=== PATIENT | female | born 1965 | race Hispanic/Latino ===

== ENCOUNTER → 2022-09-07 | Outpatient (CLI) | payer MEDICAID | END | disposition home or self-care (01) | LOC: RAH 10:10 | PROVIDERS: ATTEND Internal Medicine | DX: K22.2 Esophageal obstruction (principal); K21.9 Gastro-esophageal reflux disease without esophagitis; R13.10 Dysphagia, unspecified | CPT/HCPCS: 74240 ==

== ENCOUNTER → 2023-01-22 | Outpatient (CLI) | payer MEDICAID | END | disposition home or self-care (01) | LOC: RAH 12:35 | PROVIDERS: ATTEND Family Medicine | DX: M47.814 Spondylosis without myelopathy or radiculopathy, thoracic region (principal); M47.816 Spondylosis without myelopathy or radiculopathy, lumbar region; M54.50 Low back pain, unspecified | CPT/HCPCS: 72072; 72100 ==

== ENCOUNTER 2023-08-02 10:22 | Emergency (ER) | payer MEDICAID ==
[~2023-08-02] VITALS: Ht 154.9 cm; Wt 63.5 kg
[2023-08-02] MEDS: 0.9%NACL 1000ML 1,000 ML IV ONE (11:18)
[2023-08-02] MEDS: KETOROLAC 30MG VIAL (30MG/ML) IVP ONE (11:18)
[2023-08-02] MEDS: ONDANSETRON 4MG INJ IVP ONE (11:18)
[2023-08-02 11:29] LABS: BASOPHILS # (AUTO) 0.07 K/uL (0.00-0.20); BASOPHILS % (AUTO) 0.9 % (0.0-5.0); EOSINOPHILS # (AUTO) 0.13 K/uL (0.00-0.70); EOSINOPHILS % (AUTO) 1.6 % (0.0-8.0); HEMATOCRIT 40.7 % (36-48); IMMATURE GRANULOCYTE ABSOLUTE 0.02 K/uL (0-1); LYMPHOCYTES # (AUTO) 2.8 K/uL (1.0-4.8); LYMPHOCYTES % (AUTO) 33.8 % (21.0-51.0); MEAN CORPUSCULAR HEMOGLOBIN 26.7 pg (27.0-33.0); MEAN CORPUSCULAR HGB CONC 33.7 g/dL (32.0-36.0); MEAN CORPUSCULAR VOLUME 79.2 fL (79-99); MONOCYTES # (AUTO) 0.3 K/uL (0.1-1.0); NEUTROPHILS # (AUTO) 4.9 K/uL (1.8-7.7); NEUTROPHILS % (AUTO) 59.5 % (40.0-77.0); PLATELET COUNT (AUTO) 302 K/uL (130-400); RED BLOOD CELL COUNT(AUTO) 5.14 MIL/uL (4.00-5.50); RED CELL DISTRIBUTION WIDTH 14.3 % (11.0-15.5); WHITE BLOOD COUNT (AUTO) 8.2 K/uL (4.8-10.8)
[2023-08-02 11:40] LABS: ALBUMIN 3.8 g/dL (3.5-5.0); CREATININE 0.8 mg/dL (0.5-1.0); TOTAL PROTEIN, SERUM 7.9 g/dL (6.0-8.3)
[2023-08-02 11:50] LABS: ADD UA MICROSCOPIC YES; APPEARANCE,URINE CLEAR (CLEAR); BILIRUBIN,URINE NEGATIVE (NEGATIVE); COLOR,URINE LIGHT-YELLOW (YELLOW); GLUCOSE, URINE (UA) >=1000 mg/dL (NEGATIVE); KETONES,URINE NEGATIVE (NEGATIVE); LEUKOCYTE ESTERASE ,URINE NEGATIVE Leu/uL (NEGATIVE); NITRATE,URINE NEGATIVE (NEGATIVE); OCCULT BLOOD,URINE NEGATIVE (NEGATIVE); PH,URINE 5.5 (5.0-8.0); PROTEIN,URINE NEGATIVE (NEGATIVE); UROBILINOGEN,URINE 0.2 mg/dL (0.2-1.0)
[2023-08-02 12:01] LABS: BACTERIA,URINE RARE /HPF (None Seen); MUCUS,URINE RARE LPF (None Seen); SQUAMOUS EPITHELIAL CELL,UR FEW /HPF (0-2)
[2023-08-02 12:40] VITALS: BP 148/77; PULSE 72; RESP 16; O2SAT 100
[2023-08-02] MEDS ORDERED: IBUP-2070 PO (13:11)
[2023-08-02] MEDS ORDERED: MOM30 PO (13:11)
== END 2023-08-02 13:41 | disposition home or self-care (01) ==
LOC: EDH 10:22
DX: R51.9 Headache, unspecified (principal); R81 Glycosuria; E86.0 Dehydration; E11.9 Type 2 diabetes mellitus without complications; E78.00 Pure hypercholesterolemia, unspecified; I10 Essential (primary) hypertension; Z90.49 Acquired absence of other specified parts of digestive tract; Z90.710 Acquired absence of both cervix and uterus
CPT/HCPCS: 99285; 76770; 96374; 96361; 96375; 80053; 83690; 85025; 81001; 36415; 74018; 76856; J7030; J2405; J1885

== ENCOUNTER → 2023-08-02 | Outpatient (CLI) | payer MEDICAID ==
[~2023-08-02] MED LIST: IBUP-2070 PO; MOM30 PO
== END | disposition home or self-care (01) ==
LOC: RAH 09:46
PROVIDERS: ATTEND Internal Medicine
DX: R93.421 Abnormal radiologic findings on diagnostic imaging of right kidney (principal); R10.31 Right lower quadrant pain; Z90.710 Acquired absence of both cervix and uterus
CPT/HCPCS: 76770; 76856

== ENCOUNTER → 2024-02-24 | Outpatient (CLI) | payer MEDICAID ==
--- NOTE | 2024-02-24 16:05 | HMCIMG ---
FOOT COMP 3+VWS LT REASON: FOOT PAIN TECHNIQUE: 3 views were obtained. FINDINGS: There is a nondisplaced fracture proximal base of the fifth metatarsal. Bones appear otherwise unremarkable. Joint spaces are preserved and soft tissues appear normal. IMPRESSION: 1. Transverse fracture across the proximal base of the fifth metatarsal, not distracted.
== END | disposition home or self-care (01) ==
LOC: RAH 15:07
PROVIDERS: ATTEND Family Medicine
DX: S92.355A Nondisplaced fracture of fifth metatarsal bone, left foot, initial encounter for closed fracture (principal); M79.672 Pain in left foot; X58.XXXA Exposure to other specified factors, initial encounter; Y93.89 Activity, other specified; Y92.89 Other specified places as the place of occurrence of the external cause; Y99.8 Other external cause status
CPT/HCPCS: 73630

== ENCOUNTER 2024-05-06 08:14 | Day surgery (SDC) | payer MEDICAID ==
[~2024-05-06] VITALS: Ht 157.5 cm; Wt 65.8 kg
[2024-05-06] VITALS (12 sets, daily range): BP systolic 108–139; BP diastolic 68–81; PULSE 78–96; RESP 15–18; TEMP 97.1–98
[~2024-05-06 08:14] MED LIST changes: +ALEN70TA80 PO; +ASPI-1005 PO; +ATOR40TA69 PO; +BUSP10TA3 PO; +CHLO25TA3 PO; +FLUO40CA49 PO; +GABA-1405 PO; +GOLY4L PO; +HYDR-3422 PO; +HYDR25TA67 PO; -IBUP-2070 PO; +INSU100I24 SQ; +IRBE75TA16 PO; +LEVO25CA4 PO; +LINA290C PO; +LORA0.5T83 PO; +METF-446 PO; +METO-409 PO; -MOM30 PO; +NAPR-1023 PO; +NORT10CA2 PO; +PANT40TA54 PO; +SEMA2PEN SQ; +[UNRECOGNIZED DRUG - OTHER] PO
[2024-05-06] MEDS: 0.9%NACL 1000ML 1,000 ML IV ONE (09:17)
[2024-05-06] MEDS ORDERED: proPOFol 10 MG/ML 20ML VIAL IV ONE (09:30)
--- NOTE | 2024-05-06 11:14 | NUR ---
FULL AND COMPLETE DISCHARGE INSTRUCTIONS GIVEN TO PATIENT AND FAMILY BOTH VERBALLY AND IN WRITING. VOICED UNDERSTANDING TO GI PROCEDURE FOLLOW UP EXPECTIONS AND PRECAUTIONS. PATIENT DENIES C/O PAIN OR NEED. PIV REMOVED WITH CATHETER TIP INTACT. Patient attempted to drive own car home. She was returned to Day Patient room. Now pending transportation with alternate family member. Daughter at side.
--- NOTE | 2024-05-06 13:26 | NUR ---
Transportation arrived at this time to picker tender Patient and Daughter. Witnessed getting into a silver SUV.
== END 2024-05-06 11:10 | disposition home or self-care (01) ==
LOC: ENDO 08:14 → DAH 08:14 → ENDO 11:10
PROVIDERS: ATTEND Internal Medicine Gastroenterology
DX: R10.31 Right lower quadrant pain (principal); K59.04 Chronic idiopathic constipation; K63.3 Ulcer of intestine; E11.43 Type 2 diabetes mellitus with diabetic autonomic (poly)neuropathy; K31.84 Gastroparesis; K21.9 Gastro-esophageal reflux disease without esophagitis; K57.90 Diverticulosis of intestine, part unspecified, without perforation or abscess without bleeding; K22.2 Esophageal obstruction; K76.0 Fatty (change of) liver, not elsewhere classified; K29.70 Gastritis, unspecified, without bleeding; K64.1 Second degree hemorrhoids; K43.9 Ventral hernia without obstruction or gangrene; R10.13 Epigastric pain; R93.421 Abnormal radiologic findings on diagnostic imaging of right kidney; E78.5 Hyperlipidemia, unspecified; I25.10 Atherosclerotic heart disease of native coronary artery without angina pectoris; I10 Essential (primary) hypertension; F41.9 Anxiety disorder, unspecified; F32.A Depression, unspecified; E03.9 Hypothyroidism, unspecified; E66.9 Obesity, unspecified; M19.90 Unspecified osteoarthritis, unspecified site; Z90.49 Acquired absence of other specified parts of digestive tract; Z95.5 Presence of coronary angioplasty implant and graft; Z98.890 Other specified postprocedural states; Z90.710 Acquired absence of both cervix and uterus; Z79.899 Other long term (current) drug therapy; Z68.27 Body mass index [BMI] 27.0-27.9, adult; Z79.84 Long term (current) use of oral hypoglycemic drugs; Z79.82 Long term (current) use of aspirin
CPT/HCPCS: 82948; 45378; J7030 ×2; J2704; A4620; A4215 ×2; A4223; A4222; A4221; A4663; A4606; J3490

== ENCOUNTER 2024-07-29 12:17 | Emergency (ER) | payer MEDICAID ==
[~2024-07-29] VITALS: Ht 154.9 cm; Wt 70.8 kg
[~2024-07-29 12:17] MED LIST changes: -GOLY4L PO; -LEVO25CA4 PO; +LEVO25CA5 PO; -NAPR-1023 PO; +NAPR-1194 PO
[2024-07-29 13:14] LABS: BASOPHILS # (AUTO) 0.05 K/uL (0.00-0.20); BASOPHILS % (AUTO) 0.6 % (0.0-5.0); EOSINOPHILS # (AUTO) 0.12 K/uL (0.00-0.70); EOSINOPHILS % (AUTO) 1.4 % (0.0-8.0); HEMATOCRIT 33.6 % (36-48); IMMATURE GRANULOCYTE ABSOLUTE 0.03 K/uL (0-1); LYMPHOCYTES # (AUTO) 2.7 K/uL (1.0-4.8); MEAN CORPUSCULAR HEMOGLOBIN 27.3 pg (27.0-33.0); MEAN CORPUSCULAR HGB CONC 33.6 g/dL (32.0-36.0); MEAN CORPUSCULAR VOLUME 81.2 fL (79-99); MONOCYTES # (AUTO) 0.6 K/uL (0.1-1.0); MONOCYTES % (AUTO) 7.5 % (3.0-13.0); NEUTROPHILS # (AUTO) 4.9 K/uL (1.8-7.7); NEUTROPHILS % (AUTO) 58.1 % (40.0-77.0); PLATELET COUNT (AUTO) 259 K/uL (130-400); RED BLOOD CELL COUNT(AUTO) 4.14 MIL/uL (4.00-5.50); RED CELL DISTRIBUTION WIDTH 14.3 % (11.0-15.5); WHITE BLOOD COUNT (AUTO) 8.4 K/uL (4.8-10.8)
[2024-07-29 13:30] LABS: ALBUMIN 3.5 g/dL (3.5-5.0); BILIRUBIN,DIRECT 0.2 mg/dL (0.0-0.3); BILIRUBIN,TOTAL 0.7 mg/dL (0.2-1.0); POTASSIUM 3.6 mmol/L (3.5-5.1); TOTAL PROTEIN, SERUM 7.8 g/dL (6.0-8.3)
--- NOTE | 2024-07-29 14:29 | ERN ---
General Chief Complaint: Flu Symptoms Stated Complaint: VOMITTING,WEAKNESS Time Seen by MD: 12:21 History of Present Illness Initial Comments 58-year-old female who presents for one week of body aches, subjective fever, cough, congestion, sore throat. No rhinorrhea. P.o. tolerant. Nausea without vomiting. No diarrhea. No abdominal pain. No chest pain. Allergies: Coded Allergies: No Known Drug Allergies (Unverified Allergy, Unknown, 08/02/23) Home Meds Reported Medications Buspirone HCl (Buspirone HCl) 10 Mg Tablet, 10 MG PO TID, TAB 05/01/24 Fluoxetine HCl (Fluoxetine HCl) 40 Mg Capsule, 1 CAP PO DAILY for 30 Days, #30 CAP 0 Refills 05/01/24 Lorazepam (Ativan) 0.5 Mg Tablet, 0.5 MG PO HS, TAB 05/01/24 Irbesartan (Irbesartan) 75 Mg Tablet, 1 TAB PO DAILY for 30 Days, #30 TAB 0 Refills 05/01/24 Levothyroxine Sodium (Levothyroxine) 25 Mcg Capsule, 1 CAP PO DAILY for 30 Days, #30 CAP 0 Refills 05/01/24 Linaclotide (Linzess) 290 Mcg Capsule, 1 CAP PO DAILY for 30 Days, #30 CAP 0 Refills 05/01/24 Pantoprazole Sodium (Pantoprazole Sodium) 40 Mg Tablet.dr, 1 TAB PO DAILY for 30 Days, #30 TAB 0 Refills 05/01/24 Atorvastatin Calcium (LIPITOR) 40 Mg Tablet, 1 TAB PO DAILY for 30 Days, #30 TAB 0 Refills 05/01/24 Aspirin (ASPIRIN 81MG CHEW TAB) 81 Mg Tab.chew, 1 TAB PO DAILY for 30 Days, #30 TAB 0 Refills 05/01/24 Fe/FA/Dha/Epa/Fad/Nadh/Be/Mv47 (Enlyte Softgel) 1.5-8.73MG Cap.ir.dr, 1 CAP PO DAILY for 30 Days, #30 CAP 0 Refills 05/01/24 Gabapentin (Gabapentin) 600 Mg Tablet, 600 MG PO HS, TAB 05/01/24 Metoprolol Succinate (Metoprolol Succinate) 100 Mg Tab.er.24h, 1 TAB PO DAILY for 30 Days, #30 TAB 0 Refills 05/01/24 Hydralazine HCl (Hydralazine HCl) 25 Mg Tablet, 1 TAB PO BID for 30 Days, #60 TAB 0 Refills 05/01/24 Nortriptyline HCl (Nortriptyline HCl) 10 Mg Capsule, 10 MG PO AM, CAP 05/01/24 Hydroxyzine HCl (Hydroxyzine HCl) 50 Mg Tablet, 1 TAB PO HS for anxiety for 30 Days, #30 TAB 0 Refills 05/01/24 Naproxen (Naproxen) 500 Mg Tablet, 1 TAB PO BID for pain for 30 Days, #60 TAB 0 Refills 05/01/24 Metformin HCl (Metformin HCl) 1,000 Mg Tablet, 1 TAB PO BID for 30 Days, #60 TAB 0 Refills 05/01/24 Chlorthalidone (Chlorthalidone) 25 Mg Tablet, 1 TAB PO DAILY for 30 Days, #30 TAB 0 Refills 05/01/24 Insulin Degludec (Tresiba Flextouch U-100) 100 Unit/Ml (3 Ml) Insuln.pen, 100 UNIT SQ AM, SYRINGE 05/01/24 Alendronate Sodium (Alendronate Sodium) 70 Mg Tablet, 1 TAB PO QWEEK for 28 Days, #4 TAB 0 Refills in the morning, at least 30 minutes before the first food, beverage, or medication of the day 05/01/24 Semaglutide (Ozempic) 2 Mg/0.75 Ml (8 Mg/3 Ml) Pen.injctr, 2 MG SQ QWEEK for 30 Days, #3 ML 0 Refills 05/01/24 Past Medical History Past Medical History: Diabetes-Type II, High Cholesterol, Hypertension Past Surgical History: Appendectomy, Hysterectomy, Cholecystectomy Surgical History Other: 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 EENT: Rhinorrhea sore throat RESPIRATORY: Cough CARDIOVASCULAR: No chest pain, no edema, no palpitations, no syncope. GASTROINTESTINAL/ABDOMINAL: Nausea without vomiting GENITOURINARY: No abnormal discharge, no dysuria, no frequent urination, no hematuria. No complaints of pain in the genitals. MUSCULOSKELETAL: No back pain, no gout, no joint pain, no joint swelling, no muscle pain, no muscle stiffness, no neck pain. INTEGUMENTARY: No change in color, no change in hair/nails, no dryness, no lesion, no lumps, no rash. NEUROLOGICAL/PSYCH: No anxiety, not depressed, no emotional problem, no headache, no numbness, no pre-existing deficit, no history of seizures, no tremors, no weakness. HEMATOLOGIC/LYMPHATIC: Not anemic, no history of blood clots, no apparent bleeding, no bruising, glands not swollen. All Systems Negative, Except as Noted. Physical Exam Physical Exam Dictation VITAL SIGNS: Reviewed. GENERAL APPEARANCE: Alert, oriented x3, no acute distress HEAD AND FACE: Non-traumatic. EYES: PERRL, pink conjunctivas, eyelid no trauma, anterior chamber clear. EARS: Pinnas intact and no signs of trauma or erythema. Ear canals clear and no discharge. TMs no erythema. NOSE: No discharge, no bleeding. OROPHARYNX: Mouth normal, teeth no caries, tongue pink. Pharynx clear, no erythema. Tonsils no exudates, no abscesses noted. Mucous membrane moist. NECK: Supple, non-tender, no thyromegaly, no masses, no JVD, no bruits. BREAST: Deferred. CHEST: No tenderness, no crepitus, no paradoxical movement, no retractions. LUNGS: Clear, well-ventilated, symmetric, no rales, no wheezing, no rhonchi, no stridor, good breath sounds bilaterally. HEART: Regular rate, regular rhythm, no murmur, no gallops. VASCULAR: No peripheral edema. ABDOMEN: Soft, positive bowel sounds, nondistended, no guarding, nontender, no rebound, no masses no hepatomegaly, no splenomegaly, no Jacinto's sign, no hernias. RECTAL: Deferred. GENITAL: Deferred. NEUROLOGICAL: Normal speech, gross motor function intact, gross sensory function intact. MUSCULOSKELETAL: Neck nontender, full range of motion, back nontender, full range of motion. EXTREMITIES: Nontender, full range of motion. SKIN: Color pink, dry, no turgor, no rash, no lacerations, no abrasions, no contusions. LYMPHATICS: Deferred. Results Laboratory and Microbiology Lab and Micro Result Laboratory Tests Test 07/29/24 13:06 07/29/24 14:20 White Blood Count 8.4 K/uL (4.8-10.8) Red Blood Count 4.14 MIL/uL (4.00-5.50) Hemoglobin 11.3 g/dL (12.0-16.0) L Hematocrit 33.6 % (36-48) L Mean Corpuscular Volume 81.2 fL (79-99) Mean Corpuscular Hemoglobin 27.3 pg (27.0-33.0) Mean Corpuscular Hemoglobin Concent 33.6 g/dL (32.0-36.0) Red Cell Distribution Width 14.3 % (11.0-15.5) Platelet Count 259 K/uL (130-400) Mean Platelet Volume 9.1 fL (7.5-10.5) Immature Granulocyte % (Auto) 0.4 % (0-1) Neutrophils (%) (Auto) 58.1 % (40.0-77.0) Lymphocytes (%) (Auto) 32.0 % (21.0-51.0) Monocytes (%) (Auto) 7.5 % (3.0-13.0) Eosinophils (%) (Auto) 1.4 % (0.0-8.0) Basophils (%) (Auto) 0.6 % (0.0-5.0) Neutrophils # (Auto) 4.9 K/uL (1.8-7.7) Lymphocytes # (Auto) 2.7 K/uL (1.0-4.8) Monocytes # (Auto) 0.6 K/uL (0.1-1.0) Eosinophils # (Auto) 0.12 K/uL (0.00-0.70) Basophils # (Auto) 0.05 K/uL (0.00-0.20) Absolute Immature Granulocyte (auto 0.03 K/uL (0-1) Nucleated Red Blood Cells 0.0 % (0.0-0.19) Sodium Level 130 mmol/L (136-145) L Potassium Level 3.6 mmol/L (3.5-5.1) Chloride Level 95 mmol/L (101-111) L Carbon Dioxide Level 24 mmol/L (21-32) Blood Urea Nitrogen 25 mg/dL (7-18) H Creatinine 1.0 mg/dL (0.5-1.0) Glomerular Filtration Rate Calc 65 mL/min (>90) Random Glucose 75 mg/dL (70-105) Total Calcium 9.8 mg/dL (8.5-10.1) Total Bilirubin 0.7 mg/dL (0.2-1.0) Direct Bilirubin 0.2 mg/dL (0.0-0.3) Aspartate Amino Transf (AST/SGOT) 33 U/L (10-37) Alanine Aminotransferase (ALT/SGPT) 35 U/L (12-78) Alkaline Phosphatase 82 U/L (50-136) Total Protein 7.8 g/dL (6.0-8.3) Albumin 3.5 g/dL (3.5-5.0) Lipase 88 U/L (16-77) H Procalcitonin 0.13 ng/mL (0.05-0.5) Influenza Type A Antigen Negative For Type A Influenza Type B Antigen Negative For Type B SARS-CoV-2 Antigen (Rapid) PRESUMPTIVE NEGATIVE MDM CC: Multiple complaints including body aches subjective fever cough congestion sore throat. Historian: Patient Comorbidities: Diabetes, dyslipidemia, hypertension, appendectomy, hysterectomy, cholecystectomy, kidney tumor removal Limitations by social determinants of health: None Differential diagnosis: Influenza type symptoms, flu-like illness, bacterial infection, pneumonia, other. Vital signs: Stable, remained stable here in the ER Labs ( independently ordered and interpreted by me ): No leukocytosis no anemia. Chemistry panel shows elevated BUN to creatinine ratio consistent with dehydration. Otherwise electrolytes are normal Liver enzymes are normal lipase normal procalcitonin was normal. Flu SARS nega tive. Chest x-ray independently interpreted by me he had no focal infiltrates. Treatment in ED: 1 L lactated Ringer's 15 mg IV Toradol Patient was no life-threatening pathology. Does not triggers SIRS or sepsis. No major abnormalities on her workup. she was high-risk and has been describing body aches productive cough, so we will treat with a course of antibiotics for possible community-acquired pneumonia. Patient was agreeable with the plan. Prescriptions: Azithromycin ED Course Orders Procedure Category Date Status Time Covid19 (Sars Antigen LAB 07/29/24 Complete Rapid) 12:57 Influenza Type A & B, LAB 07/29/24 Complete Rapid 12:57 Cbc With Differential LAB 07/29/24 Complete 12:57 Basic Metabolic Panel LAB 07/29/24 Complete 12:57 Chest 1vw RAD 07/29/24 Taken 12:57 Hepatic Function Panel LAB 07/29/24 Complete 12:57 Lipase LAB 07/29/24 Complete 12:57 Procalcitonin LAB 07/29/24 Complete 12:57 Lactated Ringers PHA 07/29/24 Complete 1000ml (Lactated 13:30 Ketorolac PHA 07/29/24 Complete Tromethamine 15mg/Ml 13:30 Current Medications Medications (Trade) Dose Ordered Sig/Miguel Route PRN Reason Start Time Stop Time Status Last Admin Dose Admin Ketorolac Tromethamine (toRADol) 15 mg ONCE ONCE IV 07/29/24 13:30 07/29/24 13:31 DC 07/29/24 14:38 Lactated Ringer's 1,000 ml @ 0 mls/hr ONCE ONCE IV 07/29/24 13:30 07/29/24 13:31 DC 07/29/24 14:38 Vital Signs Date Time Temp Pulse Resp B/P (MAP) Pulse Ox O2 Delivery O2 Flow Rate FiO2 07/29/24 12:47 91 16 106/64 99 DX & DISP Disposition: Discharge Departure Impression: Primary Impression: CAP (community acquired pneumonia) Additional Impression: Dehydration Condition: Stable Scripts Azithromycin (Azithromycin) 250 Mg Tablet 1 TAB PO AD for 5 Days, #6 TAB 0 Refills 2 the first day followed by 1 for days 2-5 Prov: JOSE A RASHEED DO 07/29/24 Additional Instructions: There are no dangerous findings on your workup here today. Based on your symptoms, you may have an upper respiratory infection. I have prescribed azithromycin, which is an antibiotic. Please take as prescribed. Your blood work is unremarkable. Your chest x-ray is unremarkable. Your flu and COVID swabs are negative. Be sure to drink plenty of liquids. An electrolyte solution such as Gatorade has a good choice. You can alternate Tylenol and ibuprofen every 4 hours as needed for pain or fevers. Please return to the ED if you have any concerns. Referrals: SUE FOSTER M.D. (PCP) JOSE A RASHEED DO Jul 29, 2024 14:29
[2024-07-29] MEDS: LACTATED RINGERS 1000ML 1,000 ML IV ONE (14:38)
[2024-07-29] MEDS: ketOROlac 15MG/ML VIAL (15MG/ML) IV ONE (14:38)
[2024-07-29 14:47] LABS: COVID19 (SARS ANTIGEN RAPID) PRESUMPTIVE NEGATIVE (NEGATIVE); INFLUENZA TYPE A Negative For Type A (NEGATIVE); INFLUENZA TYPE B Negative For Type B (NEGATIVE)
[2024-07-29] MEDS ORDERED: AZIT250T9 PO (15:03)
[2024-07-29 15:23] VITALS: BP 110/65; PULSE 84; RESP 16; TEMP 98.6; O2SAT 99
--- NOTE | 2024-07-29 17:04 | HMCIMG ---
CHEST 1VW HISTORY: Cough COMPARISON: None FINDINGS: A frontal projection of the chest was obtained. No acute pulmonary infiltrates is seen. The heart is normal in size. Prominent interstitial markings are seen. No evidence of aortic calcification is seen. IMPRESSION: 1. No acute pulmonary infiltrate is seen.
== END 2024-07-29 15:29 | disposition home or self-care (01) ==
LOC: EDH 12:17
DX: J18.9 Pneumonia, unspecified organism (principal); E86.0 Dehydration; E11.9 Type 2 diabetes mellitus without complications; E78.00 Pure hypercholesterolemia, unspecified; I10 Essential (primary) hypertension; Z20.822 Contact with and (suspected) exposure to COVID-19; Z79.82 Long term (current) use of aspirin; Z79.84 Long term (current) use of oral hypoglycemic drugs; Z79.85 Long-term (current) use of injectable non-insulin antidiabetic drugs; Z79.890 Hormone replacement therapy; Z79.899 Other long term (current) drug therapy; Z90.49 Acquired absence of other specified parts of digestive tract; Z90.710 Acquired absence of both cervix and uterus
CPT/HCPCS: 99284; 96374; 71045; 96361; 87426; 80076; 80048; 83690; 85025; 87804 ×2; 36415; 84145; J1885; J7120

== ENCOUNTER 2024-12-12 17:00 | Emergency (ER) | payer MEDICAID ==
[~2024-12-12] VITALS: Ht 154.9 cm; Wt 63.5 kg
[~2024-12-12 17:00] MED LIST changes: +AZIT250T9 PO
[2024-12-12 17:02] VITALS: BP 166/82; PULSE 90; RESP 20; TEMP 98.4
[2024-12-12] MEDS ORDERED: AMOX1TAB16 PO (17:30)
--- NOTE | 2024-12-12 17:38 | ERN ---
General Chief Complaint: Skin Rash/Abscess Stated Complaint: RASH Time Seen by MD: 17:05 Time Seen by Midlevel: 17:05 History of Present Illness Initial Comments 59-year-old female presenting to the ER with redness and swelling to her mid upper back. Patient states she felt like something bit her. Shortly after he developed redness and increased pain and swelling to the area Allergies: Coded Allergies: No Known Drug Allergies (Unverified Allergy, Unknown, 08/02/23) Home Meds Active Scripts Azithromycin (Azithromycin) 250 Mg Tablet, 1 TAB PO AD for 5 Days, #6 TAB 0 Refills 2 the first day followed by 1 for days 2-5 Prov:JOSE A RASHEED DO 07/29/24 Reported Medications Buspirone HCl (Buspirone HCl) 10 Mg Tablet, 10 MG PO TID, TAB 05/01/24 Fluoxetine HCl (Fluoxetine HCl) 40 Mg Capsule, 1 CAP PO DAILY for 30 Days, #30 CAP 0 Refills 05/01/24 Lorazepam (Ativan) 0.5 Mg Tablet, 0.5 MG PO HS, TAB 05/01/24 Irbesartan (Irbesartan) 75 Mg Tablet, 1 TAB PO DAILY for 30 Days, #30 TAB 0 Refills 05/01/24 Levothyroxine Sodium (Levothyroxine) 25 Mcg Capsule, 1 CAP PO DAILY for 30 Days, #30 CAP 0 Refills 05/01/24 Linaclotide (Linzess) 290 Mcg Capsule, 1 CAP PO DAILY for 30 Days, #30 CAP 0 Refills 05/01/24 Pantoprazole Sodium (Pantoprazole Sodium) 40 Mg Tablet.dr, 1 TAB PO DAILY for 30 Days, #30 TAB 0 Refills 05/01/24 Atorvastatin Calcium (LIPITOR) 40 Mg Tablet, 1 TAB PO DAILY for 30 Days, #30 TAB 0 Refills 05/01/24 Aspirin (ASPIRIN 81MG CHEW TAB) 81 Mg Tab.chew, 1 TAB PO DAILY for 30 Days, #30 TAB 0 Refills 05/01/24 Fe/FA/Dha/Epa/Fad/Nadh/Be/Mv47 (Enlyte Softgel) 1.5-8.73MG Cap.ir.dr, 1 CAP PO DAILY for 30 Days, #30 CAP 0 Refills 05/01/24 Gabapentin (Gabapentin) 600 Mg Tablet, 600 MG PO HS, TAB 05/01/24 Metoprolol Succinate (Metoprolol Succinate) 100 Mg Tab.er.24h, 1 TAB PO DAILY for 30 Days, #30 TAB 0 Refills 05/01/24 Hydralazine HCl (Hydralazine HCl) 25 Mg Tablet, 1 TAB PO BID for 30 Days, #60 TAB 0 Refills 05/01/24 Nortriptyline HCl (Nortriptyline HCl) 10 Mg Capsule, 10 MG PO AM, CAP 05/01/24 Hydroxyzine HCl (Hydroxyzine HCl) 50 Mg Tablet, 1 TAB PO HS for anxiety for 30 Days, #30 TAB 0 Refills 05/01/24 Naproxen (Naproxen) 500 Mg Tablet, 1 TAB PO BID for pain for 30 Days, #60 TAB 0 Refills 05/01/24 Metformin HCl (Metformin HCl) 1,000 Mg Tablet, 1 TAB PO BID for 30 Days, #60 TAB 0 Refills 05/01/24 Chlorthalidone (Chlorthalidone) 25 Mg Tablet, 1 TAB PO DAILY for 30 Days, #30 TAB 0 Refills 05/01/24 Insulin Degludec (Tresiba Flextouch U-100) 100 Unit/Ml (3 Ml) Insuln.pen, 100 UNIT SQ AM, SYRINGE 05/01/24 Alendronate Sodium (Alendronate Sodium) 70 Mg Tablet, 1 TAB PO QWEEK for 28 Days, #4 TAB 0 Refills in the morning, at least 30 minutes before the first food, beverage, or medication of the day 05/01/24 Semaglutide (Ozempic) 2 Mg/0.75 Ml (8 Mg/3 Ml) Pen.injctr, 2 MG SQ QWEEK for 30 Days, #3 ML 0 Refills 05/01/24 Past Medical History Past Medical History: Diabetes-Type II, High Cholesterol, Hypertension Past Surgical History: Appendectomy, Hysterectomy, Cholecystectomy Surgical History Other: KIDNEY TUMOR REMOVED Female( History) History: Not Applicable ROS Dictation CONSTITUTIONAL: NEGATIVE EXCEPT FOR HPI HEAD/FACE: NEGATIVE EXCEPT FOR HPI EENT: NEGATIVE EXCEPT FOR HPI RESPIRATORY: NEGATIVE EXCEPT FOR HPI GASTROINTESTINAL/ABDOMINAL: NEGATIVE EXCEPT FOR HPI GENITOURINARY: NEGATIVE EXCEPT FOR HPI MUSCULOSKELETAL: NEGATIVE EXCEPT FOR HPI INTEGUMENTARY: NEGATIVE EXCEPT FOR HPI NEUROLOGICAL/PSYCH: NEGATIVE EXCEPT FOR HPI HEMATOLOGIC/LYMPHATIC: NEGATIVE EXCEPT FOR HPI ALL SYSTEMS NEGATIVE, EXCEPT NOTED ABOVE. 13 POINT REVIEW OF SYSTEMS ASSESSED AND ALL NEGATIVE EXCEPT FOR ABOVE. Physical Exam Physical Exam Dictation PHYSICAL EXAM: GENERAL: ALERT,, AWAKE ORIENTED X 3 HEENT: EOMI, SCLERA NON ICTERIC, MOIST MUCOSA NECK: SUPPLE, NO JVD, TRACHEA MIDLINE LUNGS: CLEAR BREATH SOUNDS BILATERALLY. NO WHEEZES HEART: REGULAR RATE AND RHYTHM. NORMAL S1 AND S2, WITHOUT MURMURS ABD: ABDOMEN SOFT, NONTENDER. BOWEL SOUNDS PRESENT EXT: NO CLUBBING OR CYANOSIS, NEURO: ALERT AND ORIENTED TO PERSON, FOLLOWS COMMANDS SKIN: There is an area of erythema to the upper mid back MDM MDM: Differential diagnosis: Cellulitis, abscess, shingles There are no social concerns with this patient. Prescription drug management Prescriptions will include: Augmentin Medical management and examination interpretation discussions were had by me with other qualified healthcare professionals as indicated for the patient's care. ED Course Orders Procedure Category Date Status Time Ceftriaxone 1g Vial PHA 12/12/24 In Process (Rocephine 1g Inj) 17:30 Ketorolac PHA 12/12/24 In Process Tromethamine 30mg/Ml 17:30 Current Medications Medications (Trade) Dose Ordered Sig/Miguel Route PRN Reason Start Time Stop Time Status Last Admin Dose Admin Ceftriaxone Sodium (ROCEphine 1G INJ) 1 gm ONCE ONCE IM 12/12/24 17:30 12/12/24 17:31 Ketorolac Tromethamine (toRADol) 30 mg ONCE ONCE IM 12/12/24 17:30 12/12/24 17:31 Vital Signs Date Time Temp Pulse Resp B/P (MAP) Pulse Ox O2 Delivery O2 Flow Rate FiO2 12/12/24 17:02 98.4 90 20 166/82 99 Room Air 0 DX & DISP Disposition: Discharge Departure Impression: Primary Impression: Rash Condition: Stable Scripts Amoxicillin/Potassium Clav (Amox Tr-K Clv 875-125 mg Tab) 875 Mg-125 Mg Tablet 1 EACH PO BID for 5 Days, #10 TAB 0 Refills Prov: BRYANT REYES 12/12/24 Referrals: SUE FOSTER M.D. (PCP) Time of Disposition: 17:30 I have reviewed the case, and I agree with, Diagnosis and Plan I performed the substantive portion of the visit. I have reviewed and personally made and approve the management plan that is documented in the note by myself or the SLAVA. I acknowledge for responsibility for the patient's management plan. BRYANT REYES Dec 12, 2024 17:38
== END 2024-12-12 19:07 | disposition home or self-care (01) ==
LOC: EDH 17:00
DX: R21 Rash and other nonspecific skin eruption (principal); E11.9 Type 2 diabetes mellitus without complications; E78.00 Pure hypercholesterolemia, unspecified; I10 Essential (primary) hypertension; Z79.82 Long term (current) use of aspirin; Z79.84 Long term (current) use of oral hypoglycemic drugs; Z79.85 Long-term (current) use of injectable non-insulin antidiabetic drugs; Z79.890 Hormone replacement therapy; Z79.899 Other long term (current) drug therapy; Z90.49 Acquired absence of other specified parts of digestive tract; Z90.710 Acquired absence of both cervix and uterus
CPT/HCPCS: 99284; 96372 ×2; J1885; J0696

== ENCOUNTER 2025-01-15 17:36 | Emergency (ER) | payer MEDICAID ==
[~2025-01-15] VITALS: Ht 157.5 cm; Wt 65.8 kg
[~2025-01-15 17:36] MED LIST changes: +AMOX1TAB16 PO
--- NOTE | 2025-01-15 17:45 | ERN ---
ED Note History of Present Illness Stated Complaint: RT ARM PAIN Chief Complaint: Upper Extremity Pain/Injury Time Seen by MD: 17:39 Dictation: PATIENT IS A 59-YEAR-OLD FEMALE HERE WITH A AN MRI REPORT FROM [facility] IT SHOWS THAT SHE HAS A RIGHT HUMERAL HEAD CHONDROMA AND SHE HAS HAD THIS PAIN FOR SEVERAL WEEKS. SHE STATES HER DOCTOR HAS GIVEN HER INJECTIONS HOWEVER TOLD HER HE HAD NO WHERE TO SEND HER FOR THIS. . NEUROVASCULAR CMS INTACT SHE HAS TYLENOL WITH THE CODEINE AT HOME. Allergies: Coded Allergies: No Known Drug Allergies (Unverified Allergy, Unknown, 08/02/23) Home Meds Active Scripts Amoxicillin/Potassium Clav (Amox Tr-K Clv 875-125 mg Tab) 875 Mg-125 Mg Tablet, 1 EACH PO BID for 5 Days, #10 TAB 0 Refills Prov:BRYANT REYES 12/12/24 Azithromycin (Azithromycin) 250 Mg Tablet, 1 TAB PO AD for 5 Days, #6 TAB 0 Refills 2 the first day followed by 1 for days 2-5 Prov:JOSE A RASHEED DO 07/29/24 Reported Medications Buspirone HCl (Buspirone HCl) 10 Mg Tablet, 10 MG PO TID, TAB 05/01/24 Fluoxetine HCl (Fluoxetine HCl) 40 Mg Capsule, 1 CAP PO DAILY for 30 Days, #30 CAP 0 Refills 05/01/24 Lorazepam (Ativan) 0.5 Mg Tablet, 0.5 MG PO HS, TAB 05/01/24 Irbesartan (Irbesartan) 75 Mg Tablet, 1 TAB PO DAILY for 30 Days, #30 TAB 0 Refills 05/01/24 Levothyroxine Sodium (Levothyroxine) 25 Mcg Capsule, 1 CAP PO DAILY for 30 Days, #30 CAP 0 Refills 05/01/24 Linaclotide (Linzess) 290 Mcg Capsule, 1 CAP PO DAILY for 30 Days, #30 CAP 0 Refills 05/01/24 Pantoprazole Sodium (Pantoprazole Sodium) 40 Mg Tablet.dr, 1 TAB PO DAILY for 30 Days, #30 TAB 0 Refills 05/01/24 Atorvastatin Calcium (LIPITOR) 40 Mg Tablet, 1 TAB PO DAILY for 30 Days, #30 TAB 0 Refills 05/01/24 Aspirin (ASPIRIN 81MG CHEW TAB) 81 Mg Tab.chew, 1 TAB PO DAILY for 30 Days, #30 TAB 0 Refills 05/01/24 Fe/FA/Dha/Epa/Fad/Nadh/Be/Mv47 (Enlyte Softgel) 1.5-8.73MG Cap.ir.dr, 1 CAP PO DAILY for 30 Days, #30 CAP 0 Refills 05/01/24 Gabapentin (Gabapentin) 600 Mg Tablet, 600 MG PO HS, TAB 05/01/24 Metoprolol Succinate (Metoprolol Succinate) 100 Mg Tab.er.24h, 1 TAB PO DAILY for 30 Days, #30 TAB 0 Refills 05/01/24 Hydralazine HCl (Hydralazine HCl) 25 Mg Tablet, 1 TAB PO BID for 30 Days, #60 TAB 0 Refills 05/01/24 Nortriptyline HCl (Nortriptyline HCl) 10 Mg Capsule, 10 MG PO AM, CAP 05/01/24 Hydroxyzine HCl (Hydroxyzine HCl) 50 Mg Tablet, 1 TAB PO HS for anxiety for 30 Days, #30 TAB 0 Refills 05/01/24 Naproxen (Naproxen) 500 Mg Tablet, 1 TAB PO BID for pain for 30 Days, #60 TAB 0 Refills 05/01/24 Metformin HCl (Metformin HCl) 1,000 Mg Tablet, 1 TAB PO BID for 30 Days, #60 TAB 0 Refills 05/01/24 Chlorthalidone (Chlorthalidone) 25 Mg Tablet, 1 TAB PO DAILY for 30 Days, #30 TAB 0 Refills 05/01/24 Insulin Degludec (Tresiba Flextouch U-100) 100 Unit/Ml (3 Ml) Insuln.pen, 100 UNIT SQ AM, SYRINGE 05/01/24 Alendronate Sodium (Alendronate Sodium) 70 Mg Tablet, 1 TAB PO QWEEK for 28 Days, #4 TAB 0 Refills in the morning, at least 30 minutes before the first food, beverage, or medication of the day 05/01/24 Semaglutide (Ozempic) 2 Mg/0.75 Ml (8 Mg/3 Ml) Pen.injctr, 2 MG SQ QWEEK for 30 Days, #3 ML 0 Refills 05/01/24 Past Medical History Past Medical History: Diabetes-Type II, High Cholesterol, Hypertension Surgical History: Appendectomy, Hysterectomy, Cholecystectomy Surgical History Other: KIDNEY TUMOR REMOVED History: Not Applicable RN Note Reviewed/Agreed w/PFSH: Yes Review of System Dictation CONSTITUTIONAL: NEGATIVE EXCEPT FOR HPI HEAD/FACE: NEGATIVE EXCEPT FOR HPI EENT: NEGATIVE EXCEPT FOR HPI RESPIRATORY: NEGATIVE EXCEPT FOR HPI GASTROINTESTINAL/ABDOMINAL: NEGATIVE EXCEPT FOR HPI GENITOURINARY: NEGATIVE EXCEPT FOR HPI MUSCULOSKELETAL: NEGATIVE EXCEPT FOR HPI RIGHT HUMERAL HEAD PAIN INTEGUMENTARY: NEGATIVE EXCEPT FOR HPI NEUROLOGICAL/PSYCH: NEGATIVE EXCEPT FOR HPI HEMATOLOGIC/LYMPHATIC: NEGATIVE EXCEPT FOR HPI ALL SYSTEMS NEGATIVE, EXCEPT NOTED ABOVE. 13 POINT REVIEW OF SYSTEMS ASSESSED AND ALL NEGATIVE EXCEPT FOR ABOVE. Physical Exam Dictation VITAL SIGNS REVIEWED GENERAL APPEARANCE: ALERT, ORIENTED X 3, MILD ACUTE DISTRESS, WELL DEVELOPED, NOURISHED. HEAD AND FACE: NON-TRAUMATIC. EYES: PERRL, PINK CONJUNCTIVAS, EYELID NO TRAUMA, ANTERIOR CHAMBER WITH ARCUS SENILIS. EARS: PINNAS INTACT AND NO SIGNS OF TRAUMA OR ERYTHEMA EAR CANALS CLEAR AND NO DISCHARGE TM NO ERYTHEMA NOSE: NO DISCHARGE, NO BLEEDING. OROPHARYNX: MOUTH NORMAL, TONGUE PINK, PHARYNX CLEAR,NO ERYTHEMA, TONSILS NO EXUDATES, NO ABSCESSES NOTED, MUCOUS MEMBRANE MOIST NECK: SUPPLE, NON-TENDER, NO THYROMEGALY, NO MASSES, NO JVD, NO BRUITS BREAST:DEFERRED CHEST:NO TENDERNESS, NO CREPITUS, NO PARADOXICAL MOVEMENT, NO RETRACTIONS LUNGS:CLEAR, WELL-VENTILATED, SYMMETRIC, NO RALES, NO WHEEZING, NO RHONCHI, NO STRIDOR, GOOD BREATH SOUNDS BILATERALLY HEART: REGULAR RATE, REGULAR RHYTHM, NO MURMUR, NO GALLOPS VASCULAR: NO PERIPHERAL EDEMA, ABDOMEN: SOFT, POSITIVE BOWEL SOUNDS, NONDISTENDED, NO GUARDING, NONTENDER, NO REBOUND, NO MASSES NO HEPATOMEGALY, NO SPLENOMEGALY, NO WHITE'S SIGN, NO HERNIAS. RECTAL: DEFERRED GENITAL: DEFERRED NEUROLOGICAL: NORMAL SPEECH, MOTOR FUNCTION INTACT, SENSORY FUNCTION INTACT MUSCULOSKELETAL: NECK NONTENDER, FULL RANGE OF MOTION, BACK NONTENDER, FULL RANGE OF MOTION, EXTREMITIES: MILD TENDERNESS TO RIGHT HUMERAL HEAD ANTERIORLY NO FULLNESS NOTED. DECREASED RANGE OF MOTION SECONDARY TO PAIN. SKIN: COLOR PINK, DRY, NO TURGOR, NO RASH, NO LACERATIONS, NO ABRASIONS, NO CONTUSIONS. LYMPHATIC: DEFERRED Results (Laboratory/Radiology) Labs Reviewed?: Yes ED Course ED Course 1740/NO LABS OR IMAGING INDICATED. PATIENT HERE WITH A AN MRI REPORT Medical Decision Making MDM MEDICAL DECISION-MAKING BASED ON HPI AND REVIEW OF MRI REPORT. PATIENT HAS TYLENOL WITH CODEINE AT HOME. SHE WILL BE REFERRED WITH HER MRI REPORT TO DR. FLAKITA SEGURA FOR FURTHER EVALUATION AND TREATMENT SHE WILL BE MEDICATED ON SITE AND THEN TOLD TO CONTINUE HER MEDICATIONS AT HOME DX & DISP Disposition: Discharge Departure Impression: Primary Impression: Enchondroma of right humerus Condition: Stable Additional Instructions: FOLLOW-UP WITH PRIMARY CARE PROVIDER IN 1 TO 2 DAYS. TAKE MEDICATIONS DIRECTED HERE IN THE EMERGENCY ROOM. OKAY TO CONTINUE HOME MEDICATIONS UNLESS OTHERWISE DISCUSSED DURING YOUR VISIT IN THE EMERGENCY ROOM TODAY. RETURN TO YOUR NEAREST EMERGENCY ROOM IF SYMPTOMS WORSEN OR IF THERE IS NO IMPROVEMENT. CALL 911 IF YOU NEED IMMEDIATE ASSISTANCE. TAKE TYLENOL OR MOTRIN [id number] NEEDED AND IF NO CONTRAINDICATIONS ARE PRESENT. INCREASE ORAL HYDRATION. A WOUND CULTURE OR URINE CULTURE WAS ORDERED HERE IN THE EMERGENCY ROOM DEPARTMENT PLEASE FOLLOW-UP WITH PRIMARY CARE PROVIDER AND ADVISE THEM TO GET REPEAT PORTS FROM OUR FACILITY. IF YOU HAD ANY JOSHUA WRAP/SPLINTS THAT WERE APPLIED HERE, PLEASE DO NOT REMOVE THEM UNTIL YOU SEE YOUR PRIMARY CARE OR SPECIALTY. CONTINUE ALL YOUR PAIN MEDICATIONS FROM YOUR PRIMARY CARE DOCTOR AT HOME. CALL DR. SEGURA FOR AN APPOINTMENT ON SATURDAY, TAKE YOUR MRI REPORT WITH THE TO HER 1ST APPOINTMENT. Referrals: SUE FOSTER M.D. (PCP) FLAKITA SEGURA MD Time of Disposition: 17:43 I have reviewed the case, and I agree with, Diagnosis and Plan KARYN BRAXTON Jan 15, 2025 17:45
[2025-01-15 18:50] VITALS: BP 133/80; PULSE 96; RESP 17; TEMP 98.6; O2SAT 98
[2025-01-15] MEDS: HYDROcodone/APAP 5/325 1 TAB TABLET PO SCH (19:05)
== END 2025-01-15 19:37 | disposition home or self-care (01) ==
LOC: EDH 17:36
DX: D16.01 Benign neoplasm of scapula and long bones of right upper limb (principal); E11.9 Type 2 diabetes mellitus without complications; E78.00 Pure hypercholesterolemia, unspecified; I10 Essential (primary) hypertension; Z79.82 Long term (current) use of aspirin; Z79.84 Long term (current) use of oral hypoglycemic drugs; Z79.85 Long-term (current) use of injectable non-insulin antidiabetic drugs; Z79.890 Hormone replacement therapy; Z79.899 Other long term (current) drug therapy; Z90.49 Acquired absence of other specified parts of digestive tract; Z90.710 Acquired absence of both cervix and uterus
CPT/HCPCS: 99283